=== PATIENT | male | born 1960 | race African-American/Black ===

== ENCOUNTER 2018-10-10 09:43 | Day surgery (SDC) | payer OTHER ==
[~2018-10-10] VITALS: Ht 165.1 cm; Wt 70.0 kg
[2018-10-10] VITALS (10 sets, daily range): BP systolic 138–187; BP diastolic 67–100; PULSE 32–36; TEMP 97.9–98.2
[~2018-10-10 09:43] MED LIST: NO HOME MEDICATIONS
[2018-10-10] MEDS ORDERED: VIAGRA100 M1 PO (10:22)
[2018-10-10] MEDS ORDERED: HCTZ12.5TAB PO (10:25)
[2018-10-10 10:26] LABS: HEMATOCRIT 43.4 % (42.0-52.0); HEMOGLOBIN 14.4 g/dl (13.5-18.0); MEAN CELL VOLUME 87 fl (80.0-100.0); MEAN CORPUSCULAR HEMOGLOBIN 29 pg (27.0-31.0); MEAN CORPUSCULAR HGB CONC 33 g/dl (33.0-37.0); MEAN PLATELET VOLUME 10.9 fl (7.4-10.4); PLATELET COUNT 217 K/mm3 (130-400); REDCELL DISTRIBUTION WIDTH-CV 14.3 % (11.5-14.5)
[2018-10-10 10:32] LABS: CREATININE, serum 1.05 (0.66-1.25); POTASSIUM 4.7 mmol/L (3.4-5.0)
[2018-10-10 10:34] LABS: INR 1.1 (0.8-3.0); PROTHROMBIN TIME 12.5 SECONDS (9.7-12.8)
--- NOTE | 2018-10-10 11:45 | NUR ---
PLEASE SEE MERGE FOR ALL MEDICATION ADMINISTRATION TIMES, SEDATION ASSESSMENT ASSESSMENT DURING AND POST PROCEDURE. ALLENS TEST DONE, RIGHT RADIAL PREPPED AND DRAPED.
--- NOTE | 2018-10-10 12:35 | NUR ---
Pt returned to [facility] 11 per bed s/p heart cath. Pt resting well.
--- NOTE | 2018-10-10 15:15 | NUR ---
Pt has ambulated and sammi PO intake s n/v. Radial band removed from R wrist, site remains C/D/I s swelling. Site covered with bandaid and gauze and wrapped with coban. PIV removed with catheter intact. Pt sammi well.
--- NOTE | 2018-10-10 15:30 | NUR ---
Pt discharged per w/c by nurse with girlfriend Gwen.
== END 2018-10-10 17:15 | disposition home or self-care (01) ==
LOC: COL.CAR 09:43
PROVIDERS: Internal Medicine Cardiovascular Disease
DX: I44.2 Atrioventricular block, complete (principal); I11.0 Hypertensive heart disease with heart failure; I50.30 Unspecified diastolic (congestive) heart failure; I08.3 Combined rheumatic disorders of mitral, aortic and tricuspid valves; I27.20 Pulmonary hypertension, unspecified; Z80.9 Family history of malignant neoplasm, unspecified
CPT/HCPCS: J1644; J3010; Q9967